=== PATIENT | female | born 1970 | race Caucasian/White ===

== ENCOUNTER → 2016-09-19 | Outpatient (CLI) | payer BC, MEDICARE ==
--- NOTE | 2016-09-19 21:29 | CONS ---
DATE: 09/19/2016 CONSULTATION/NEW PATIENT EVALUATION HISTORY OF PRESENT ILLNESS/SLEEP-WAKE EVALUATION: A 46-year-old lady has been seen in the sleep center for significant excessive daytime sleepiness. Patient had been diagnosed obstructive sleep apnea-hypopnea syndrome in 2012. At that time she was started on treatment with CPAP and she continued to use CPAP at the present time. According to her, she feels significantly better while she is using her CPAP. SLEEP SCHEDULE: Presently her sleep schedule from around 11:30 p.m. until 7:00 a.m. DURING SLEEP: She uses her CPAP machine every night, but even with the machine, she wakes up at 3:00 a.m., 4:30 a.m., 5:30 a.m. and 6:00 a.m. DURING THE DAY/WAKE STATE: During the day, she feel significant sleepiness. [place] Sleepiness Scale is 18. No snoring with the machine, according to the patient. I checked patient's CPAP unit. The usage of the machine is acceptable, 23 out of 30 nights for more than 4 hours, average 5.5 hours. Patient decreased her weight from 188 pounds down to 176 pounds since previous titration. I reviewed results of her titration in 2013 and CPAP pressure is at 8 cm of water and at that pressure by results of previous sleep study in 2013, patient's breathing was fully normalized with apnea-hypopnea index of 0. Patient taking trazodone bedtime to help her to fall asleep and stay asleep. PAST MEDICAL HISTORY: Positive for depression, fibromyalgia, restless leg syndrome and episodes of migraines which have been improved on treatment with CPAP. MEDICATIONS: 1. Trazodone. 2. Propranolol. PAST SURGICAL HISTORY: Total hysterectomy. SOCIAL HISTORY: Positive for smoking in the positive for about 37 pack-years, quit in 2014. Alcohol consumption occasional. FAMILY HISTORY: Positive for hypertension by her mother and bladder CA by her father. REVIEW OF SYSTEMS: Positive for multiple awakenings from sleep, sleepiness during the day, swelling and pain in the body. PHYSICAL EXAMINATION: GENERAL: lady without distress. VITAL SIGNS: BP 119/77, HR 60, RR 16. Height 5 feet 2 inches. Weight 176. BMI 32.1. Neck 15-1/2 inches in circumference. Temperature 97.8. Oxygen saturation at room air 99%. HEENT: PERRLA, EOMI. Evaluation of oropharynx showed tongue protrudes midline. Extremely low position of soft palate. Mallampati IV. Restriction of nasal breathing, especially on the left side. NECK: Supple. No JVD. Thyroid is not palpable. LUNGS: Clear to percussion and to auscultation. Good air exchange. No wheezing or rhonchi. HEART: S1, S2 regular. No murmurs, gallops or rubs. ABDOMEN: Soft and nontender, slightly obese. Bowel sounds are present. No organomegaly appreciated. EXTREMITIES: No clubbing or cyanosis. HYDROMETEOROLOGICAL TECHNICIAN: Awake, alert, and oriented x3. Cranial nerves 2 to 7 intact. There is no fasciculation or atrophy noted. No focal deficits observed. IMPRESSION: 1. Obstructive sleep apnea-hypopnea syndrome. Patient demonstrated good compliance with treatment, but continued to have multiple awakenings from sleep and sleepiness during the day. 2. Differential diagnosis includes hypersomnia, including idiopathic hypersomnia and narcolepsy. 3. Anxiety. 4. Depression. 5. Fibromyalgia. 6. History of restless leg syndrome. 7. History of migraines. 8. History of smoking for more than 37 pack-years, quit 1 year ago. PLAN: 1. Polysomnogram on CPAP with following multiple sleep latency tests for objective evaluation of patient's symptoms of significant excessive daytime sleepiness for possibility of combination of obstructive sleep apnea-hypopnea syndrome and an additional diagnosis of hypersomnia. 2. Continue treatment with CPAP every night. 3. Losing weight. 4. Sleep hygiene with regular time in bed for at least 8 hours. 5. No driving if feeling any sleepiness. Thank you very much for allowing me to participate in the management your patient. Sincerely, Jose Alejandro Diaz MD, PhD, FAASM. Diplomat of [place] [employer], Sleep Medicine Board by [employer] [employer] Electrical Technician [facility] [place]
== END | disposition home or self-care (01) ==

== ENCOUNTER → 2018-02-12 | Outpatient (CLI) | payer BC, MEDICARE ==
--- NOTE | 2018-02-16 10:36 | MM ---
Reason for exam: screening (asymptomatic). Last mammogram was performed 1 year and 6 months ago. History: Patient is postmenopausal and history of other cancer. Family history of breast cancer in cousin. Physical Findings: A clinical breast exam by your physician is recommended on an annual basis and results should be correlated with mammographic findings. MG 3D Screening Mammo W/Cad Bilateral CC and MLO view(s) were taken. Prior study comparison: August 23, 2016, bilateral MG work up mamm w CAD BILAT. August 20, 2016, bilateral MG screening mammo w CAD. The breast tissue is heterogeneously dense. This may lower the sensitivity of mammography. Finding: There are typically benign stable calcifications in the left breast. No suspicious abnormality. No significant changes in finding since August 23, 2016 and August 20, 2016. ASSESSMENT: Benign, BI-RAD 2 RECOMMENDATION: Routine screening mammogram of both breasts in 1 year.
== END | disposition home or self-care (01) ==
LOC: RADMAMWWP 10:55
PROVIDERS: ATTEND Internal Medicine
DX: Z12.31 Encounter for screening mammogram for malignant neoplasm of breast (principal)
CPT/HCPCS: 77063; 77067

== ENCOUNTER → 2023-10-09 | Outpatient (CLI) | payer MEDICARE ==
--- NOTE | 2023-10-10 19:22 | MM ---
Reason for Exam: Screening (asymptomatic). Last mammogram was performed 5 year(s) and 8 month(s) ago. Patient History: Menarche at age 9. First Full-Term at age 24. Left ovary removed at age 32. Right ovary removed at age 32. Hysterectomy at age 32. Postmenopausal. Maternal cousin had breast cancer. Risk Values: Davida 5 year model risk: 1.4%. NCI Lifetime model risk: 10.1%. Prior Study Comparison: 08/20/2016 Bilateral Screening Mammogram, [facility]. 08/23/2016 Bilateral Diagnostic Mammogram, [facility]. 02/12/2018 Bilateral Screening Mammogram, [facility]. Tissue Density: The breast tissue is heterogeneously dense. This may lower the sensitivity of mammography. Findings: Analyzed By CAD. There is increasing nodularity at the 2:00 position right breast middle depth for which further evaluation is recommended. Other areas of asymmetric density remain unchanged. Overall Assessment: Incomplete: need additional imaging evaluation, BI-RAD 0 Management: Special View Mammogram of the right breast. Diagnostic Breast Ultrasound of the right breast. . [facility] will attempt to contact patient to return for supplemental views and ultrasound if indicated. Electronically signed and approved by: Charles Keen M.D. Radiologist
== END | disposition home or self-care (01) ==
LOC: RADMAMWWP 14:47
PROVIDERS: ATTEND Family Medicine
DX: Z12.31 Encounter for screening mammogram for malignant neoplasm of breast (principal); Z80.3 Family history of malignant neoplasm of breast; Z78.0 Asymptomatic menopausal state
CPT/HCPCS: 77063; 77067

== ENCOUNTER → 2023-10-15 | Outpatient (CLI) | payer MEDICARE ==
--- NOTE | 2023-10-15 08:04 | MM ---
Reason for Exam: Additional evaluation requested from abnormal screening. Last screening mammogram was performed less than 1 month ago. Patient History: Menarche at age 9. First Full-Term at age 24. Left ovary removed at age 32. Right ovary removed at age 32. Hysterectomy at age 32. Postmenopausal. Maternal cousin had breast cancer. Risk Values: Davida 5 year model risk: 1.4%. NCI Lifetime model risk: 10.1%. Prior Study Comparison: 08/20/2016 Bilateral Screening Mammogram, [facility]. 08/23/2016 Bilateral Diagnostic Mammogram, [facility]. 02/12/2018 Bilateral Screening Mammogram, [facility]. 10/09/2023 Bilateral MG 3D screening mammo w/cad, [facility]. Tissue Density: Right: The breast tissue is heterogeneously dense. This may lower the sensitivity of mammography. Findings: Analyzed By CAD. Persistent nodular density 5.5 cm from the nipple the proximal 1 to 2:00 position right breast measuring 8 mm. Ultrasound is recommended. Internal calcifications noted as well. Overall Assessment: Incomplete: need additional imaging evaluation, BI-RAD 0 Management: Diagnostic Breast Ultrasound of the left breast. . Results were given to the patient verbally at the time of exam. Patient should continue monthly self-breast exams. A clinical breast exam by your physician is recommended on an annual basis. This exam should not preclude additional follow-up of suspicious palpable abnormalities. Note on Davida scores and lifetime risk: 1. A Davida score greater than 3% is considered moderate risk. If this is the case, consider specialist referral to assess eligibility for a risk reducing agent. 2. If overall lifetime risk for the development of breast cancer is 20% or higher, the patient may qualify for future screening with alternating mammogram and breast MRI. Electronically signed and approved by: Yoshi Diaz M.D. Radiologis
--- NOTE | 2023-10-15 08:36 | USB ---
Reason for Exam: Additional evaluation requested from prior study. Patient History: Menarche at age 9. First Full-Term at age 24. Left ovary removed at age 32. Right ovary removed at age 32. Hysterectomy at age 32. Postmenopausal. Maternal cousin had breast cancer. Risk Values: Davida 5 year model risk: 1.4%. NCI Lifetime model risk: 10.1%. Technique: Method: Targeted. Prior Study Comparison: 08/23/2016 Bilateral Diagnostic Mammogram, [facility]. 02/12/2018 Bilateral Screening Mammogram, [facility]. 10/09/2023 Bilateral MG 3D screening mammo w/cad, [facility]. Findings: The upper outer quadrant of the right breast, the axilla of the right breast and the retroareolar of the right breast were scanned. Septated cystic structure at the right 2:00 position measuring 5 x 5 mm. No discrete solid lesions seen. Six-month follow-up mammography and ultrasound is advised. Overall Assessment: Probably benign, BI-RAD 3 Management: Diagnostic Mammogram of the right breast in 6 months. A clinical breast exam by your physician is recommended on an annual basis and results should be correlated with mammographic findings. This exam should not preclude additional follow-up of suspicious palpable abnormalities. Results were given to the patient verbally at the time of exam. Electronically signed and approved by: Yoshi Diaz M.D. Radiologis
== END | disposition home or self-care (01) ==
LOC: RADMAMWWP 07:40
PROVIDERS: ATTEND Family Medicine
DX: R92.331 Mammographic heterogeneous density, right breast (principal); Z80.3 Family history of malignant neoplasm of breast; Z78.0 Asymptomatic menopausal state
CPT/HCPCS: 77065; 76642; G0279; 77061